=== PATIENT | female | born 1975 | race Caucasian/White ===

== ENCOUNTER → 2020-02-24 | Outpatient (REF) | payer OTHER | LOC: M LAB REF 19:08 | PROVIDERS: ATTEND Physician Assistant | DX: D23.5 Other benign neoplasm of skin of trunk (principal) ==

== ENCOUNTER → 2021-03-01 | Outpatient (REF) | payer BC | LOC: M LAB REF 13:55 | PROVIDERS: ATTEND Physician Assistant | DX: D22.39 Melanocytic nevi of other parts of face (principal) ==

== ENCOUNTER → 2021-12-16 | Outpatient (CLI) | payer BC | LOC: M WHC 10:58 | PROVIDERS: ATTEND Nurse Practitioner Family | DX: R10.2 Pelvic and perineal pain (principal) ==

== ENCOUNTER → 2023-02-02 | Outpatient (CLI) | payer BC | LOC: M WHC 09:52 | PROVIDERS: ATTEND Nurse Practitioner Family | DX: Z12.31 Encounter for screening mammogram for malignant neoplasm of breast (principal) ==

== ENCOUNTER 2023-03-06 09:25 | Day surgery (SDC) | payer BC ==
[~2023-03-06] VITALS: Ht 157.5 cm; Wt 79.8 kg
[~2023-03-06 09:25] MED LIST: NS 1,000 ML IV ONE
[2023-03-06 11:26] VITALS: TEMP 97
[2023-03-06] MEDS ORDERED: KETOROLAC 30 MG/ML 1ML VIAL IV ONE (11:40)
[2023-03-06] MEDS ORDERED: GLYCOPYRROLATE INJ 0.2 MG/ML 2 ML VIAL As Ordered ONE (11:47)
[2023-03-06] MEDS ORDERED: propofoL 200 MG/20 ML VIAL As Ordered ONE (11:47)
[2023-03-06] MEDS ORDERED: ACETAMINOPHEN 500 MG TAB PO ONE (11:55)
[2023-03-06 12:44] VITALS: BP 146/67; O2SAT 98
== END 2023-03-06 12:47 | disposition home or self-care (01) ==
LOC: M OPP 09:25
PROVIDERS: ATTEND Internal Medicine Gastroenterology
DX: D50.9 Iron deficiency anemia, unspecified (principal); K57.30 Diverticulosis of large intestine without perforation or abscess without bleeding; K64.8 Other hemorrhoids; Z87.891 Personal history of nicotine dependence; Z88.0 Allergy status to penicillin; Z80.52 Family history of malignant neoplasm of bladder
CPT/HCPCS: 45378; J1885

== ENCOUNTER 2025-01-24 06:10 | Day surgery (SDC) | payer BC ==
[~2025-01-24] VITALS: Ht 157.5 cm; Wt 83.1 kg
[~2025-01-24 06:10] MED LIST changes: +ASHW500C PO; +B-12100010 PO; +BIOT5000 PO; +BUPR150T12 PO; +CHEL50TA2 PO; +DROS1TAB6 PO; +GLUT500C4 PO; +L-TH100C2 PO; +MAGN400C PO; -NS 1,000 ML IV ONE; +OMEG12002 PO; +PARO5TAB PO; +PROBCAP2 PO; +RA L500T PO; +VITA100093 PO
[2025-01-24 07:03] LABS: ALT/SGPT 32 U/L (7.0-40); AST/SGOT 24 U/L (<34); CALCIUM LEVEL 9.3 MG/DL (8.5-10.1); CARBON DIOXIDE LEVEL 29 MMOL/L (20-31); CHLORIDE LEVEL 102 MMOL/L (98-107); CREATININE FOR GFR 0.68 MG/DL (0.55-1.30); GLOMERULAR FILTRATION RATE > 90.0 (>51); POTASSIUM SERUM 4.3 MMOL/L (3.5-5.1); SODIUM LEVEL 141 MMOL/L (136-145)
[2025-01-24] MEDS ORDERED: LIDOCAINE 2% 100 MG/5 ML SDV (FOR ANES.) As Ordered ONE (07:13)
[2025-01-24] MEDS ORDERED: MIDAZOLAM INJ 2 MG/2 ML VIAL As Ordered ONE (07:13)
[2025-01-24] MEDS ORDERED: dexAMETHasone 4 MG/ML 1 ML VIAL As Ordered ONE (07:14)
[2025-01-24] MEDS ORDERED: KETOROLAC 30 MG/ML 1 ML VIAL As Ordered ONE (07:14)
[2025-01-24] MEDS ORDERED: ONDANSETRON 4MG/2ML VIAL As Ordered ONE (07:14)
[2025-01-24] MEDS ORDERED: ACETAMINOPHEN 1000MG/100ML IV BAG As Ordered ONE (07:14)
[2025-01-24] MEDS ORDERED: dexmedeTOMIDine (4 MCG/ML) 200 MCG/50 ML BTL As Ordered ONE (07:14)
[2025-01-24] MEDS: LIDOCAINE 1% SDV 30 ML VIAL As Ordered ONE (07:58)
[2025-01-24] MEDS ORDERED: LR 1,000 ML IV SCH (08:05)
[2025-01-24] MEDS: SILVER NITRATE APPLICATOR (1 = QTY 10) As Ordered ONE (08:08)
[2025-01-24 08:18] VITALS: BP 113/75; TEMP 98.2; O2SAT 96
== END 2025-01-24 08:49 | disposition home or self-care (01) ==
LOC: M SDC 06:10
PROVIDERS: ATTEND Obstetrics & Gynecology
DX: N84.1 Polyp of cervix uteri (principal); N85.8 Other specified noninflammatory disorders of uterus; Z30.430 Encounter for insertion of intrauterine contraceptive device; Z88.0 Allergy status to penicillin; Z79.899 Other long term (current) drug therapy
CPT/HCPCS: 36415; 58300; 58558; 80053; 81025; 85014; 85018; 88305; J0131; J1100; J1885; J2250; J2405; J3010; J7298

== ENCOUNTER → 2025-01-28 | Outpatient (REF) | payer BC | LOC: M SFHCDERM 17:55 | PROVIDERS: ATTEND Physician Assistant | DX: D49.2 Neoplasm of unspecified behavior of bone, soft tissue, and skin (principal) ==